=== PATIENT | female | born 1965 | race Caucasian/White ===

== ENCOUNTER → 2019-05-10 09:57 | Outpatient (CLI) | payer OTHER, SELFPAY ==
--- NOTE | 2019-05-10 | DI.MG.S_ITS ---
BILATERAL DIGITAL SCREENING MAMMOGRAM 3D/2D WITH CAD: 05/10/2019 CLINICAL: Routine screening. Comparison is made to exams dated: 10/23/2014 mammogram, 05/16/2013 mammogram, 02/16/2012 mammogram, and 02/02/2012 mammogram - [facility] [place]. There are scattered fibroglandular elements in both breasts. Current study was also evaluated with a Computer Aided Detection (CAD) system. No significant masses, calcifications, or other findings are seen in either breast. There has been no significant interval change. IMPRESSION: NEGATIVE There is no mammographic evidence of malignancy. A 1 year screening mammogram is recommended. This exam was interpreted at Station ID: [id number]. NOTE: For mammograms, a report in lay terms will be sent to the patient. Approximately 15% of breast malignancies will not be visualized mammographically. In the management of a palpable breast mass, a negative mammogram must not discourage biopsy of a clinically suspicious lesion. Electronically Signed By: Connor [email or web address]/[email or web address]:05/10/2019 18:36:27 letter sent: Normal Exam ACR BI-RADS Category 1: Negative [id number]
== END ==
PROVIDERS: Visit Provider Family Medicine
DX: Z12.31 Encounter for screening mammogram for malignant neoplasm of breast (principal)
CPT/HCPCS: 77063; 77067